=== PATIENT | female | born 1965 | race Caucasian/White ===

== ENCOUNTER 2017-09-20 05:04 | Emergency (ER) | payer OTHER ==
[~2017-09-20] VITALS: Ht 162.6 cm; Wt 84.0 kg
[2017-09-20] MEDS ORDERED: LISI-515 PO (05:24)
[2017-09-20 05:27] VITALS: RESP 20; O2SAT 97
[2017-09-20] MEDS ORDERED: methylPREDNISolone SOD SUCC 125 MG/2 ML VIAL IV PUSH ONE (05:30)
[2017-09-20] MEDS ORDERED: FAMOTIDINE 20 MG/2 ML VIAL IV PUSH ONE (05:30)
[2017-09-20] MEDS ORDERED: diphenhydrAMINE HCL 50 MG/ML VIAL IVP ONE (05:30)
[2017-09-20] MEDS ORDERED: AMLO5 PO (05:31)
--- NOTE | 2017-09-20 05:31 | PD ---
HPI Chief Complaint: Allergic/Adverse Reaction Time Seen by Provider: 05:25 Travel History International Travel<30 days: No Contact w/Intl Traveler<30days: No Traveled to known affect area: No History of Present Illness HPI 52-year-old female presents to the emergency department by private transportation the care of her spouse for evaluation of isolated swelling of the upper lip on the right side. Patient states she has noticed the swelling for approximately 4 hours. Swelling has not acutely worsened. Patient has had no tongue or throat swelling. Patient's had no urticaria. Patient's had no dizziness lightheadedness near-syncope or syncope. Patient's had no chest pain palpitations shortness of breath wheezing hoarseness or stridor. Patient's had no nausea or vomiting or abdominal cramping or diarrhea. Patient does take lisinopril for hypertension. Patient recently had a flu shot and thought she was having a delayed adverse reaction to the flu shot. Patient never had any prior issues with taking lisinopril. Patient otherwise feels well. Patient admits to drinking 3 alcoholic beverages while watching the [employer]. [facility] Past Medical History Narrative Medical Hypertension; alcohol use; nursing notes reviewed Diminished Hearing: No Hypertension: Yes ?: Not LMP: 09/07/17 Menopausal: Yes Past Surgical History Appendectomy: Yes ("1971") Tonsillectomy: Yes Social History Alcohol Use: Yes ("WINE") Tobacco Use: Yes Substance Use: No Allergies-Medications (Allergen,Severity, Reaction): Coded Allergies: lisinopril (Verified Allergy, Unknown, 09/20/17) Sulfa (Sulfonamide Antibiotics) (Verified Adverse Reaction, Severe, Swelling, 09/20/17) Reported Meds & Prescriptions Reported Meds & Active Scripts Active Norvasc (Amlodipine Besylate) 5 Mg Tab 5 Mg PO DAILY Reported Lisinopril 20 Mg Tab 20 Mg PO DAILY Review of Systems Except as stated in HPI: all other systems reviewed are Neg General / Constitutional: No: Fever Eyes: No: Visual changes HENT: Positive: Other, No: Headaches, Congestion Cardiovascular: No: Chest Pain or Discomfort (lip swelling), Palpitations, Syncope Respiratory: No: Shortness of Breath, Wheezing, Stridor Gastrointestinal: No: Nausea, Vomiting, Diarrhea, Abdominal Pain Genitourinary: No: Flank Pain Musculoskeletal: No: Myalgias, Arthralgias Skin: No Rash, No Hives Neurologic: No: Weakness, Dizziness, Syncope, Focal Abnormalities, Coordination Problem Psychiatric: No: Anxiety Hematologic/Lymphatic: No: Easy Bruising Physical Exam Narrative GENERAL: Well-developed well-nourished female in no acute distress no respiratory distress no stridor or hoarseness SKIN: Warm and dry. HEAD: Normocephalic. EYES: No scleral icterus. No injection or drainage. ENT: Mucous membranes moist airway is patent localized angioedema of the right side of the upper lip NECK: Supple, trachea midline. No JVD or lymphadenopathy. CARDIOVASCULAR: Regular rate and rhythm without murmurs, gallops, or rubs. RESPIRATORY: Breath sounds equal bilaterally. No accessory muscle use. GASTROINTESTINAL: Abdomen soft, non-tender, nondistended. MUSCULOSKELETAL: No cyanosis, or edema. BACK: Nontender without obvious deformity. No CVA tenderness. Data Data Last Documented VS Vital Signs Date Time Temp Pulse Resp B/P (MAP) Pulse Ox O2 Delivery O2 Flow Rate FiO2 09/20/17 05:52 88 20 100 Room Air Orders Orders Ecg Monitoring (09/20/17 05:25) Iv Access Insert/Monitor (09/20/17 05:25) Oximetry (09/20/17 05:25) Diphenhydramine Inj (Benadryl Inj) (09/20/17 05:30) Methylprednisolone So Succ Inj (Solumedr (09/20/17 05:30) Famotidine Inj (Pepcid Inj) (09/20/17 05:30) Alcohol (Ethanol) (09/20/17 05:25) Labs Laboratory Tests Test 09/20/17 05:36 Ethyl Alcohol Level 289 MG/DL [facility] Medical Decision Making Medical Screen Exam Complete: Yes Emergency Medical Condition: Yes Medical Record Reviewed: Yes Interpretation(s) Serum alcohol: 289 Differential Diagnosis ACEI related angioedema, allergic reaction, anaphylaxis, contact dermatitis, trauma Narrative Course Patient placed on operations trainer IV access obtained specimen collected and sent for resulting patient administered Benadryl 25 mg IV Solu-Medrol 125 mg IV and Pepcid 20 mg IV Diagnosis Primary Impression: JESSICA inhibitor-aggravated angioedema Additional Impression: Alcohol intoxication Referrals: Primary Care Physician call for appointment Patient Instructions: General Instructions Med/Other Pt SpecificInfo: Prescription(s) given, Med Stopped (LISINOPRIL) Scripts Methylprednisolone Dosepak (Medrol Dosepak) 4 Mg Dspk 4 MG PO DIRECTED, #1 DSPK 0 Refills Per Pharmacist direction Prov: Heather Herzog MD 09/20/17 Amlodipine (Norvasc) 5 Mg Tab 5 MG PO DAILY for Blood Pressure Management, #30 TAB 0 Refills Prov: Heather Herzog MD 09/20/17 Heather Herzog MD Sep 20, 2017 05:31
[2017-09-20 05:52] VITALS: PULSE 88; RESP 20; O2SAT 100
[2017-09-20] MEDS ORDERED: MEDR4PAK PO (06:35)
== END 2017-09-20 06:53 | disposition home or self-care (01) ==
LOC: NEPC 05:04
DX: T78.3XXA Angioneurotic edema, initial encounter (principal); F10.129 Alcohol abuse with intoxication, unspecified; I10 Essential (primary) hypertension; Z72.0 Tobacco use; Z79.899 Other long term (current) drug therapy
CPT/HCPCS: 80307; 96374; 96375; 99284; J1200; J2930